=== PATIENT | male | born 1955 | race American Indian/Alaskan Native ===

== ENCOUNTER 2017-09-30 02:23 | Inpatient (IN) | payer OTHER ==
[2017-09-30] MEDS ORDERED: SUBLIMAZE IV ONE (02:37)
[2017-09-30] MEDS ORDERED: NACL 0.9% 1000 ML 1,000 ML IV ONE (02:37)
[2017-09-30] MEDS ORDERED: NACL 0.9% 500 ML 500 ML IV ONE (02:37)
--- NOTE | 2017-09-30 02:57 | Emergency Department Report ---
HPI - General Chief Complaint: Chest Pain Time Seen by Provider: 09/30/17 02:27 - HPI HPI: The patient is a 62-year-old male with a history of pulmonary embolism, htn, high cholesterol, obesity, and whom presents for evaluation of chest pain. The patient reports midsternal pressure-like chest pain that began approximately one hour prior to arrival, constant since onset, moderate in severity. The patient denies trauma to the chest, fever, cough, syncope, hemoptysis, unilateral leg swelling, recent immobilization. ED Past Medical Hx - Past Medical History Previous Medical History?: Yes Hx Hypertension: Yes Hx Diabetes: Yes - Surgical History Additional Surgical History: hernia repair - Social History Smoking Status: Never Smoker - Medications Home Medications: Home Medications Medication Instructions Recorded Confirmed Last Taken Type Empagliflozin [Jardiance] 25 mg PO DAILY 09/30/17 09/30/17 Unknown History Lisinopril [Zestril TAB] 40 mg PO QDAY 09/30/17 09/30/17 Unknown History NIFEdipine [Nifedipine] 90 mg PO DAILY 09/30/17 09/30/17 Unknown History Rivaroxaban [Xarelto] 20 mg PO QDAY 09/30/17 09/30/17 Unknown History metFORMIN [Glucophage] 500 mg PO BID 09/30/17 09/30/17 Unknown History ED Review of Systems ROS: Stated complaint: CODE STEMI Other details as noted in HPI Constitutional: denies: fever ENT: denies: throat or neck pain Respiratory: denies: cough, shortness of breath Cardiovascular: reports: chest pain Endocrine: denies unexplained weight loss or gain Gastrointestinal: denies: abdominal pain, nausea Genitourinary: denies: dysuria Musculoskeletal: denies: leg swelling Skin: denies: rash Neurological: denies: headache Hematological/Lymphatic: denies: easy bleeding or easy bruising Psych: denies sadness or hopelessness Physical Exam - Physical Exam Vital Signs: Vital Signs 09/30/17 02:28 Temperature 98.4 F Pulse Rate 74 Respiratory 20 Rate Blood Pressure 117/74 O2 Sat by Pulse 94 Oximetry Physical Exam: General: well-nourished, well-developed, no acute distress Head: Normocephalic, atraumatic Eyes: normal sclera ENT: Mucous membranes are pink and moist Neck: trachea midline, neck supple, No neck stiffness, no cervical adenopathy Respiratory: Breath sounds equal bilaterally, no wheezing, rales, or rhonchi Cardio: S1 and S2 present, no murmurs, rubs, gallops, capillary refill is brisk Abdomen: Normoactive bowel sounds, soft abdomen, no rigidity, no guarding or rebound tenderness Chest WALL/Back: No tenderness to palpation of the chest wall, no CVA tenderness with percussion Musc: No pitting edema Skin: No rash Neuro: no facial drooping, normal speech Psych: Normal affect ED Course Vital Signs 09/30/17 02:28 Temperature 98.4 F Pulse Rate 74 Respiratory 20 Rate Blood Pressure 117/74 O2 Sat by Pulse 94 Oximetry - Reevaluation(s) Reevaluation #1: 09/30/17 03:06 sanitation laborer arrived and has called for patient to be brought up to sanitation laborer. Patient being transferred emergently to the Knot Saw Operator. ED Medical Decision Making - Lab Data Result diagrams: 09/30/17 02:41 09/30/17 02:41 - Medical Decision Making The patient was seen and examined by myself immediately upon arrival. The patient is placed on a quality assurance monitor chassis and continuous pulse ox. On initial evaluation, the patient was found to be in no distress. Initial EKG exhibits ST elevation in leads 2, 3, and aVF, with slight ST depression in lead aVL. A code STEMI is promptly called and the on-call and emergency medical technician basic Dr. Lundberg is contacted. He agreed to accept the patient to the sanitation laborer and asked that the sanitation laborer be activated. The sanitation laborer was called in and evaluation orders were placed. The patient received 325 mg aspirin in route via EMS. The patient is given IV fentanyl here for his pain. The patient's transfer to the Knot Saw Operator. Lab results revealed normal initial troponin level. Critical care attestation.: If time is entered above; I have spent that time in minutes in the direct care of this critically ill patient, excluding procedure time. ED Disposition Clinical Impression: Acute chest pain STEMI (ST elevation myocardial infarction) Qualifiers: Involved coronary artery: right coronary artery Qualified Code(s): I21.11 - ST elevation (STEMI) myocardial infarction involving right coronary artery Disposition: OP ADMIT IP TO THIS HOSP Is pt being admited?: Yes Does the pt Need Aspirin: Yes Condition: Serious Instructions: Chest Pain (ED) Referrals: PRIMARY CARE,MD [Primary Care Provider] - 3-5 Days Time of Disposition: 02:40 Heart Score - HEART Score History: Highly suspicious EKG: Non-specific Age: 45-65 Risk factors: > 3 risk factors or hx of atherosclerotic disease Troponin: < normal limit HEART Score: 6 OLGA LIDIA score - Olga Lidia Score Age > 65: (0) No Aspirin use within the Past 7 Days: (1) Yes 3 or more CAD Risk Factors: (1) Yes 2 or more Angina events in past 24 hrs: (0) No Known CAD with more than 50% Stenosis: (0) No Elevated Cardiac Markers: (0) No ST Deviation Greater than 0.5mm: (1) Yes OLGA LIDIA Score: 3
[2017-09-30] MEDS ORDERED: BABY ASPIRIN PO ONE (03:01)
[2017-09-30 03:06] LABS: Partial Thromboplastin Time 21.9 Sec. (24.2-36.6)
[2017-09-30 03:11] LABS: Creatine Kinase MB 3.3 ng/mL (0.0-4.0)
[2017-09-30 03:12] LABS: BUN/Creatinine Ratio 19; Blood Urea Nitrogen 15 mg/dL (9-20); Calcium 8.8 mg/dL (8.4-10.2); Hemolysis Index 4
[2017-09-30] MEDS ORDERED: HEPARIN 10,000 UNITS/10 ML ONE ×2 (03:13→03:15)
[2017-09-30] MEDS ORDERED: HEPARIN/NS 5000 UNIT/500ML(CATH LAB) 1,500 ML IR ONE (03:13)
[2017-09-30] MEDS ORDERED: CALAN ONE (03:13)
[2017-09-30] MEDS ORDERED: XYLOCAINE 2% INFILTRATI ONE (03:13)
[2017-09-30 03:17] LABS: Hematocrit 45.6 % (35.5-45.6); Hemoglobin 14.5 gm/dl (11.8-15.2); Mean Corpuscular HGB Conc 32 % (32-34); Mean Corpuscular Hemoglobin 24 pg (28-32); Mean Corpuscular Volume 75 fl (84-94); Platelet Count 204 K/mm3 (140-440); Red Blood Count 6.09 M/mm3 (3.65-5.03)
[2017-09-30] MEDS ORDERED: VERSED ONE (03:26)
[2017-09-30] MEDS ORDERED: SUBLIMAZE ONE (03:26)
[2017-09-30] MEDS ORDERED: ATROPINE 0.1% (CARDIAC) ONE (03:27)
[2017-09-30] MEDS: NITROGLYCERIN SYRINGE 3 ML ONE ×2 (03:27→03:51)
[2017-09-30] MEDS: HEPARIN 10,000 UNITS/10 ML ONE ×4 (03:27→04:48)
[2017-09-30] MEDS ORDERED: HEPARIN/NS 5000 UNIT/500ML(CATH LAB) 1,000 ML IR ONE (03:39)
[2017-09-30] MEDS ORDERED: TRIDIL DRIP 50MG/250ML 50 MG/250 ML BOTTLE ONE (04:10)
[2017-09-30] MEDS ORDERED: AGGRASTAT DRIP (12.5 MG/250 ML) 12,500 MCG/250 ML BAG IV ONE (04:16)
[2017-09-30] MEDS ORDERED: PLAVIX ONE (04:31)
[2017-09-30] MEDS ORDERED: TRIDIL DRIP 50MG/250ML 50 MG/250 ML BOTTLE IV ONE (05:04)
[2017-09-30] MEDS ORDERED: ZOFRAN IV PRN (05:04)
[2017-09-30] MEDS ORDERED: D50W (25GM) Syringe IV PRN (05:09)
--- NOTE | 2017-09-30 05:16 | History and Physical Report ---
History of Present Illness Date of examination: 09/30/17 Chief complaint: Chest pain History of present illness: This is a 62-year-old woman gentleman with history of hypertension hyperlipidemia obesity diabetes protein S deficiency patient is on xalerto. Patient follows with [facility] [place] heart specialists had a negative stress test in April 2017. Patient was doing his normal activity and woke up with midsternal chest pressure mild nausea with radiation to her left arm pressure- like no syncope no palpitations. Called EMS patient was found to have an acute inferior wall [place] patient was emergently taken to the cardiac Information Assistant which revealed left main patent LAD patent diagonal one patent circumflex patent which are all large-caliber vessels with normal LV function and RCA was large aneurysmal vessel with distal vessel was 100% patient required thrombectomy and a temporary pacemaker wire initially that was removed as patient was monitored and did not require pacemaker for over an hour. Patient had a PCI of the PDA with a drug-eluting xience 2.5 x 15 mm and normal lv function, pt chest pain has improved since presentation. Past History Past Medical History: diabetes, hypertension, hyperlipidemia, other (protein S deficiency hypercoagulable state) Past Surgical History: No surgical history Social history: no significant social history Family history: no significant family history Medications and Allergies Allergies Allergy/AdvReac Type Severity Reaction Status Date / Time No Known Allergies Allergy Unverified 06/18/13 12:03 Home Medications Medication Instructions Recorded Confirmed Last Taken Type Empagliflozin [Jardiance] 25 mg PO DAILY 09/30/17 09/30/17 Unknown History Lisinopril [Zestril TAB] 40 mg PO QDAY 09/30/17 09/30/17 Unknown History NIFEdipine [Nifedipine] 90 mg PO DAILY 09/30/17 09/30/17 Unknown History Rivaroxaban [Xarelto] 20 mg PO QDAY 09/30/17 09/30/17 Unknown History metFORMIN [Glucophage] 500 mg PO BID 09/30/17 09/30/17 Unknown History Active Meds: Active Medications Aspirin (Baby Aspirin) 81 mg PO QDAY TREVOR Atorvastatin Calcium (Lipitor) 80 mg PO QHS TREVOR Clopidogrel Bisulfate (Plavix) 75 mg PO QDAY TREVOR Dextrose (D50w (25gm) Syringe) 50 ml IV PRN PRN PRN Reason: Hypoglycemia Sodium Chloride (Nacl 0.9% 1000 Ml) 1,000 mls @ 42 mls/hr IV ONCE ONE Stop: 10/01/17 02:25 Tirofiban/Sodium Chloride (Aggrastat Drip (12.5 Mg/250 Ml)) 12,500 mcg in 250 mls @ 0 mls/hr IV DIRECT TREVOR; Protocol Stop: 09/30/17 23:59 Nitroglycerin/Dextrose (Tridil Drip 50mg/250ml) 50 mg in 250 mls @ 6 mls/hr IV TITR ONE; Protocol Stop: 10/01/17 22:43 Sodium Chloride (Nacl 0.9% 1000 Ml) 1,000 mls @ 75 mls/hr IV DIRECT TREVOR Stop: 09/30/17 15:59 Insulin Human Regular (Humulin R) 0 units SUB-Q ACHS TREVOR; Protocol Morphine Sulfate (Morphine) 2 mg IV Q5MIN PRN PRN Reason: Chest Pain Ondansetron HCl (Zofran) 4 mg IV Q8H PRN PRN Reason: N/V unrelieved by Reglan Pantoprazole Sodium (Protonix) 40 mg PO QDAY TREVOR Rivaroxaban (Xarelto) 20 mg PO QDAY TREVOR; Protocol Tramadol HCl (Ultram) 50 mg PO Q4H PRN PRN Reason: Pain, Mild (1-3) Review of Systems All systems: negative (hpi) Physical Examination Vital Signs Temp Pulse Resp BP Pulse Ox 98.4 F 74 20 117/74 94 09/30/17 02:28 09/30/17 02:28 09/30/17 02:28 09/30/17 02:28 09/30/17 02:28 General appearance: no acute distress, well-nourished HEENT: Positive: PERRL, Mucus Membranes Moist Neck: Positive: neck supple, trachea midline Cardiac: Positive: Reg Rate and Rhythm, S1/S2. Negative: Audible Murmur Lungs: Positive: clear to auscultation, Normal Breath Sounds Neuro: Positive: Grossly Intact Abdomen: Positive: Soft, Active Bowel Sounds. Negative: Tender, Distended Male genitourinary: Positive: normal Skin: Positive: Clear Incision: Cardiac Cath Site (right arm no hematoma and right groin venous sheath in place no hematoma) Musculoskeletal: No Pain, Normal Range of Motion Extremities: Present: normal. Absent: edema Results 09/30/17 02:41 09/30/17 02:41 Cardiac Enzymes 09/30/17 Range/Units 02:41 CK-MB (CK-2) 3.3 (0.0-4.0) ng/mL Coagulation 09/30/17 Range/Units 02:41 PT 13.7 (12.2-14.9) Sec. INR 1.00 (0.87-1.13) APTT 21.9 L (24.2-36.6) Sec. CBC 09/30/17 Range/Units 02:41 WBC 8.2 (4.5-11.0) K/mm3 RBC 6.09 H (3.65-5.03) M/mm3 Hgb 14.5 (11.8-15.2) gm/dl Hct 45.6 (35.5-45.6) % Plt Count 204 (140-440) K/mm3 Lymph # Nurseryman Assistant Comprehensive Metabolic Panel 09/30/17 Range/Units 02:41 Sodium 139 (137-145) mmol/L Potassium 4.2 (3.6-5.0) mmol/L Chloride 100.6 (98-107) mmol/L Carbon Dioxide 25 (22-30) mmol/L BUN 15 (9-20) mg/dL Creatinine 0.8 (0.8-1.5) mg/dL Glucose 162 H (75-100) mg/dL Calcium 8.8 (8.4-10.2) mg/dL - Imaging and Cardiology Cardiac cath: report reviewed (09/30/2017 left main patent LAD patent diagonal one patent circumflex patent which are all large-caliber vessels with normal LV function and RCA was large aneurysmal vessel with distal vessel was 100% patient required thrombectomy and a temporary pacemaker wire initially that was removed as patient was monitored and did not require pacemaker for over an hour. Patient had a PCI of the PDA with a drug-eluting xience 2.5 x 15 mm and normal lv function) EKG interpretations - Telemetry EKG Rhythm: Sinus Rhythm (nsr st elevation inferior leads) Assessment and Plan Patient is post inferior wall WA and received a stent to the PDA drug-eluting 2.5 x 15 mm patient has a protein S deficiency and has hyper couagable state and has aneurysmal RCA vessels we'll suggest continuation of xarelto and aspirin and Plavix. Patient will receive Aggrastat for 18 hours patient is on IV nitroglycerin for chest pain as patient has small vessel distal and heavy clot burden which required thrombectomy during the PCI patient post PCI care will hold metformin post PCI patient will be on insulin sliding scale will hold beta blockers at this time in view of requiring temporary pacemaker reevaluate BP meds once patient is stabilized continue Lipitor high-dose discussed this in detail with the patient patient's family - Patient Problems (1) Acute diastolic (congestive) heart failure Current Visit: Yes Status: Acute (2) Acute respiratory failure Current Visit: Yes Status: Acute Qualifiers: Respiratory failure complication: hypoxia Qualified Code(s): J96.01 - Acute respiratory failure with hypoxia (3) Morbid obesity due to excess calories Current Visit: Yes Status: Chronic (4) Hypertension Current Visit: Yes Status: Chronic Qualifiers: Hypertension type: essential hypertension Qualified Code(s): I10 - Essential (primary) hypertension (5) Hyperlipemia, mixed Current Visit: Yes Status: Chronic (6) Diabetes mellitus Current Visit: Yes Status: Chronic Qualifiers: Diabetes mellitus type: type 2 Diabetes mellitus terminal make up operator insulin use: with terminal make up operator use Diabetes mellitus complication status: without complication Qualified Code(s): E11.9 - Type 2 diabetes mellitus without complications; Z79.4 - longterm (current) use of insulin (7) Protein S deficiency Current Visit: Yes Status: Chronic (8) STEMI (ST elevation myocardial infarction) Current Visit: Yes Status: Acute Qualifiers: Involved coronary artery: right coronary artery Qualified Code(s): I21.11 - ST elevation (STEMI) myocardial infarction involving right coronary artery
[2017-09-30] MEDS ORDERED: AGGRASTAT DRIP (12.5 MG/250 ML) 12,500 MCG/250 ML BAG IV SCH (06:00)
[2017-09-30] MEDS ORDERED: NACL 0.9% 1000 ML 1,000 ML IV SCH (06:00)
[2017-09-30 06:35] LABS: Band Neutrophils # (Manual) 0.2 K/mm3; Eosinophils % (Manual) 0 % (0.0-4.3); Total Cells Counted 100
[2017-09-30 06:36] LABS: Anisocytosis 1+; Hypochromasia 1+
[2017-09-30] MEDS: MORPHINE IV PRN ×5 (06:47→22:42)
[2017-09-30 07:41] LABS: Creatine Kinase MB 30.1 ng/mL (0.0-4.0)
[2017-09-30 08:11] LABS: Chol/HDL Ratio 4.97 %
[2017-09-30] MEDS: PROTONIX PO SCH (10:22)
[2017-09-30] MEDS: BABY ASPIRIN PO SCH (10:24)
[2017-09-30] MEDS: HumuLIN R SUB-Q SCH ×5 (10:26→22:06)
[2017-09-30 10:37] LABS: Creatine Kinase MB 51.3 ng/mL (0.0-4.0)
--- NOTE | 2017-09-30 10:41 | XRay Report ---
FINAL REPORT EXAM: XR CHEST 1V AP HISTORY: chest pain TECHNIQUE: Frontal chest x-ray. PRIORS: None currently available. FINDINGS: Hypoaerated lungs accentuate the pulmonary markings and cardiac silhouette. Cardiac silhouette is within normal limits. Prominent central pulmonary markings with airspace opacities. No pneumothorax. No large consolidation. No obvious effusion. There are no suspicious osseous lesions. IMPRESSION: Findings suggest pulmonary vascular congestion with pulmonary edema. Differential diagnosis would include pneumonia and acute pneumonitis.
[2017-09-30] MEDS: XARELTO PO SCH (11:21)
--- NOTE | 2017-09-30 11:31 | Event Note ---
Date: 09/30/17 Patient's right radial dressing has been removed no hematoma or bleeding right common femoral venous sheath has been removed hematoma no bleeding patient is chest pain is stable EKG shows improvement of ST elevations no reciprocal changes noted given patient's small vessel disease in his RCA distally to treat medically will continue nitroglycerin aspirin Plavix and xaerlto. Discussed this with the patient in detail
--- NOTE | 2017-09-30 11:31 | Consultation ---
History of Present Illness Consult date: 09/30/17 Requesting physician: RONALDO PATINO Reason for consult: other (NSTEMI, ICU care) History of present illness: Patient is a 62 y/o male who is well known with a history of hypertenison, hyperlipidemia, T2DM, obesity and Protein S deficiency and a strong family history of same, on life time anticoagulation with Xeralto, admitted on 09/30/17 for exertional chest pain doing his normal daily activityat home. Had mild retrosternal chest pressure with radiation to her left arm. Like an elephant standing on his chest. Denies any no syncope no palpitations. Called EMS patient was found to have an acute inferior wall [place] patient was emergently taken to the cardiac Press Cutter which revealed left main patent LAD patent diagonal one patent circumflex patent which are all large-caliber vessels with normal LV function and RCA was large aneurysmal vessel with distal vessel was 100% patient required thrombectomy and a temporary pacemaker wire initially that was removed as patient was monitored and did not require pacemaker for over an hour. Patient had a PCI of the PDA with a drug-eluting stent 2.5 x 15 mm and normal LV function, patient still has some residual chest pain. ECHO of 10/01/17 showed EF of 55-60 % with normal ventricular function. I have been consulted for critical care management, post PCI Patient was seen and examined. Vitals, labs, medications, chart reviewed. Past History Past Medical History: diabetes, hypertension, hyperlipidemia, other (protein S deficiency hypercoagulable state) Past Surgical History: No surgical history Social history: no significant social history Family history: no significant family history Medications and Allergies Allergies Allergy/AdvReac Type Severity Reaction Status Date / Time No Known Allergies Allergy Unverified 06/18/13 12:03 Home Medications Medication Instructions Recorded Confirmed Last Taken Type Empagliflozin [Jardiance] 25 mg PO DAILY 09/30/17 09/30/17 Unknown History Lisinopril [Zestril TAB] 40 mg PO QDAY 09/30/17 09/30/17 Unknown History NIFEdipine [Nifedipine] 90 mg PO DAILY 09/30/17 09/30/17 Unknown History Rivaroxaban [Xarelto] 20 mg PO QDAY 09/30/17 09/30/17 Unknown History metFORMIN [Glucophage] 500 mg PO BID 09/30/17 09/30/17 Unknown History Amoxicillin/K Clav Tab [Augmentin 1 tab PO Q12HR #11 tab 10/04/17 Unknown Rx 875 mg] Aspirin [Aspirin BABY CHEW TAB] 81 mg PO QDAY tab.chew 10/04/17 Unknown Rx AtorvaSTATin [Lipitor] 80 mg PO QHS #30 tablet 10/04/17 Unknown Rx Clopidogrel Bisulfate [Plavix] 75 mg PO DAILY #30 tablet 10/04/17 Unknown Rx Active Meds: Active Medications Aspirin (Baby Aspirin) 81 mg PO QDAY TREVOR Last Admin: 09/30/17 10:24 Dose: 81 mg Atorvastatin Calcium (Lipitor) 80 mg PO QHS TREVOR Clopidogrel Bisulfate (Plavix) 75 mg PO QDAY TREVOR Dextrose (D50w (25gm) Syringe) 50 ml IV PRN PRN PRN Reason: Hypoglycemia Sodium Chloride (Nacl 0.9% 1000 Ml) 1,000 mls @ 42 mls/hr IV ONCE ONE Stop: 10/01/17 02:25 Last Admin: 09/30/17 11:20 Dose: 42 mls/hr Tirofiban/Sodium Chloride (Aggrastat Drip (12.5 Mg/250 Ml)) 12,500 mcg in 250 mls @ 21 mls/hr IV DIRECT TREVOR; Protocol Stop: 09/30/17 23:59 Nitroglycerin/Dextrose (Tridil Drip 50mg/250ml) 50 mg in 250 mls @ 6 mls/hr IV TITR ONE; Protocol Stop: 10/01/17 22:43 Last Titration: 09/30/17 06:46 Dose: 50 mcg/min, 15 mls/hr Sodium Chloride (Nacl 0.9% 1000 Ml) 1,000 mls @ 75 mls/hr IV DIRECT TREVOR Stop: 09/30/17 15:59 Insulin Human Regular (Humulin R) 0 units SUB-Q ACHS TREVOR; Protocol Last Admin: 09/30/17 10:26 Dose: Not Given Morphine Sulfate (Morphine) 2 mg IV Q5MIN PRN PRN Reason: Chest Pain Last Admin: 09/30/17 10:25 Dose: 2 mg Ondansetron HCl (Zofran) 4 mg IV Q8H PRN PRN Reason: N/V unrelieved by Reglan Pantoprazole Sodium (Protonix) 40 mg PO QDAY TREVOR Last Admin: 09/30/17 10:22 Dose: 40 mg Rivaroxaban (Xarelto) 20 mg PO QDAY [facility] [place]; Protocol Last Admin: 09/30/17 11:21 Dose: 20 mg Tramadol HCl (Ultram) 50 mg PO Q4H PRN PRN Reason: Pain, Mild (1-3) Physical Examination Vital signs: Vital Signs Pulse Ox 92 09/30/17 02:24 Vitals reviewed. General appearance: no acute distress, well-nourished, obese HEENT: Positive: PERRL, Mucus Membranes Moist Neck: Positive: neck supple, trachea midline Cardiac: Positive: Reg Rate and Rhythm, S1/S2. Negative: Audible Murmur Lungs: Positive: clear to auscultation, Normal Breath Sounds Neuro: Positive: Grossly Intact Abdomen: Positive: Soft, Active Bowel Sounds. Negative: Tender, Distended Male genitourinary: Positive: normal Skin: Positive: Clear Incision: Cardiac Cath Site (right arm no hematoma and right groin venous sheath in place no hematoma) Musculoskeletal: No Pain, Normal Range of Motion Extremities: Present: normal. Absent: edema Results - Laboratory Findings CBC and BMP: 10/04/17 04:58 10/04/17 04:58 PT/INR, D-dimer PT 13.7 Sec. (12.2-14.9) 09/30/17 02:41 INR 1.00 (0.87-1.13) 09/30/17 02:41 Abnormal lab findings: Abnormal Labs 09/30/17 09/30/17 09/30/17 02:41 02:41 02:41 RBC 6.09 H MCV 75 L MCH 24 L RDW 16.0 H Seg Neuts % (Manual) 33.0 L Lymphocytes % (Manual) 51.0 H Monocytes % (Manual) 8.0 H APTT 21.9 L Glucose 162 H POC Glucose Total Creatine Kinase 272 H CK-MB (CK-2) CK-MB (CK-2) Rel Index Troponin T LDL Cholesterol Direct 09/30/17 09/30/17 09/30/17 06:24 08:26 09:41 RBC MCV MCH RDW Seg Neuts % (Manual) Lymphocytes % (Manual) Monocytes % (Manual) APTT Glucose POC Glucose 148 H Total Creatine Kinase 722 H 1010 H CK-MB (CK-2) 30.1 H 51.3 H CK-MB (CK-2) Rel Index 4.1 H 5.0 H Troponin T 0.737 H* D 0.874 H* LDL Cholesterol Direct 151 H - Diagnostic Findings Chest x-ray: image reviewed Assessment and Plan STEMI CAD s/p Stenting Acute CHF (HFpEF) Acute Hypoxemic Resp Failure HTN Hyperlipidemia Diabetes Mellitus Protein S deficiency Sinus Bradycardia Morbid Obesity -Cardio-protective measures -Continue with anticoagulation -Supplemental oxygen to keep O2 sats>88% -Weight loss and lifestyle modifications -Pain management -Anti-platelet therapy -Outpatient evaluation for sleep apnea -Accucheck with glycemic control, keep glucose <150mg/dL Discussed with cardiology Patient updated at the bedside. Counselling done
--- NOTE | 2017-09-30 12:51 | Cardiac Catherization Report ---
LEFT HEART CATH/TEMPORARY PACEMAKER/THROMBECTOMY REPORT WITH PCI DONE ON 09/30/2017 CLINICAL INFORMATION FOR PRESENTATION: This is a 62-year-old gentleman with obesity, hypertension, diabetes, cholesterol, protein S deficiency on lifelong Xarelto presents to the ED with chest pain, midsternal, and EKG shows ST elevation inferiorly with depression in the anterior leads. The patient was done on moderate sedation. The patient received 50 mcg of fentanyl and total sedation time was 80 minutes. Procedure was done via the right radial artery, sterile technique, local anesthesia, 6-Danish radial sheath inserted. The patient was becoming bradycardic and complete heart block, so a temporary pacemaker wire was placed via the right common femoral vein. Sterile technique, local anesthesia, 6-Danish venous sheath was placed and the pacemaker wire was placed into the right ventricle and achieved a heart rate of 60, output of 3 and sensory rate 3. Left heart catheterization was proceeded. FINDINGS: Left system engaged with JL3.5 catheter. Left main is large and patent. LAD is a large caliber vessel with mild ectasia. Diagonal 1 is a large caliber vessel that is patent. Circumflex is a large caliber vessel, patent, going into a large OM1 patent. Distal circumflex becomes a medium caliber vessel, patent. LV gram done in [place]ARL[place] and ANDERSON view shows normal LV function, LVEDP of 27 mmHg, LV is 122/27, aortic is 120/74. No gradient across the aortic valve on pullback. RCA engaged with a JR4 catheter, it is a large aneurysmal vessel with distal vessels 100%. There is a large RV branch that comes off that feeds almost like the PDA that is patent noted. PERCUTANEOUS INTERVENTION OF THE RCA: 1. Used a hockey stick guide to engage RCA. 2. With difficulty, I was able to, because of tortuosity of the vessel, use a Nogal wire and ballooned with a 3.0 x 12 balloon, but no gnosticism of flow. I tried to place a thrombectomy device, but would not go secondary to tortuosity. 3. I then placed a Runthrough wire and unable to give an Allstar down because of tortuosity. Runthrough wire down and ballooned small vessels distally. The wire would not go into what we felt was true branch. Balloon ballooned through the Runthrough wire and the Nogal wire and finally I was able to get some flow into its small caliber PDA vessel obtained through the PLV and then used an AngioJet device x 1 passes for 20 seconds and greatly improved flow to OLGA LIDIA 3 and showed a stenotic lesion in the PDA that was 95% lesion. 4. Then ballooned further the PLV with a Whisper wire after removal of Nogal and a 2.5 x 15 but flow did not improve after PLV branch felt to be too small. 5. The patient felt better when he had flow into that small PDA, so ballooned that with a 2.5 x 15 where there is a great caliber discrepancy between the distal RCA into that PDA. Thrombus was greatly removed after AngioJet thrombectomy device. 6. In view of improved flow, but stenotic lesion still present, I felt to stent the PDA with a drug-eluting Xience 2.5 x 15 at 12 atmospheres and reduced stenosis from 90% down to 0 in the PDA, but OLGA LIDIA 3 flow was still a chain the patient's chest pain was markedly improved. The patient did not require pacemaker support after 15-20 minutes into the case. So after observing for over an hour, we discontinued the pacemaker wire but left a 6-Danish groin sheath and multiple angiograms and through the hockey stick excellent angiographic result, but aneurysmal vessel and OLGA LIDIA 3 flow now into the distal RCA going to a small PDA with patent stent. 7. 6-Danish guiding catheter taken over a guidewire, 6-Danish radial sheath was discontinued. Radial dressing applied. No hematoma, no bleeding. SUMMARY: 1. Successful PCI of distal RCA with caliber mismatch into the PDA with drug-eluting Xience 2.5 x 15 to use a thrombectomy device AngioJet to remove heavy thrombus burden. The RCA itself is aneurysmal, large proximally and RV branch is large and is patent. 2. Left main patent, LAD patent, diagonal patent, circ patent, OM1 patent. 3. Normal LV function. 4. The patient will be on Aggrastat for 18 hours. He will be on triple therapy, Xarelto, aspirin and Plavix and post-radial care. Discussed this in detail with the patient and patient's family. JOB# [id number] ASH/VINICIUS ARIAS
[2017-09-30] MEDS: ULTRAM PO PRN (14:44)
[2017-10-01] MEDS ORDERED: ALUM-MAG HYDROX-SIMETH 200-200-20MG/5ML PO PRN (03:32)
--- NOTE | 2017-10-01 04:10 | XRay Report ---
FINAL REPORT EXAM: XR CHEST 1V AP HISTORY: post pci TECHNIQUE: A portable upright view the chest was obtained and compared to the study of 09/30/2017. FINDINGS: The heart is [id number] enlarged. The lungs appear less congested on the previous study. There are no localized infiltrates or effusions. There elevation the right hemidiaphragm. The skeletal structures reveal multilevel disc degeneration in the thoracic spine IMPRESSION: Cardiomegaly. Resolving congestion noted. No acute infiltrates or effusions.
[2017-10-01 06:02] LABS: Basophils % (Auto) 0.4 % (0.0-1.8); Eosinophils # (Auto) 0.1 K/mm3 (0.0-0.4); Eosinophils % (Auto) 0.6 % (0.0-4.3); Hematocrit 41.9 % (35.5-45.6); Hemoglobin 13.4 gm/dl (11.8-15.2); Lymphocytes # (Auto) 2.5 K/mm3 (1.2-5.4); Lymphocytes % (Auto) 26.2 % (13.4-35.0); Mean Corpuscular HGB Conc 32 % (32-34); Mean Corpuscular Volume 75 fl (84-94); Monocytes % (Auto) 10.9 % (0.0-7.3); Platelet Count 189 K/mm3 (140-440); Red Blood Count 5.57 M/mm3 (3.65-5.03); Red Cell Distribution Width 16.1 % (13.2-15.2)
[2017-10-01 06:14] LABS: Mean Corpuscular Hemoglobin 24 pg (28-32)
[2017-10-01 06:16] LABS: Creatine Kinase MB 88.7 ng/mL (0.0-4.0)
[2017-10-01 06:17] LABS: Alanine Aminotransferase 43 units/L (7-56); Albumin 3.6 g/dL (3.9-5); BUN/Creatinine Ratio 18; Blood Urea Nitrogen 14 mg/dL (9-20); Calcium 8.2 mg/dL (8.4-10.2); Hemolysis Index 3
[2017-10-01] MEDS: MORPHINE IV PRN ×2 (08:18→18:11)
--- NOTE | 2017-10-01 09:02 | Progress Note ---
Assessment and Plan Await echo. Consider addition of BB and/or Imdur if/when BP and HR permit. Currently stable cardiac status. Nitro gtt off. Will transfer pt out of CCU to telemetry. Assessment and plan reviewed with pt at bedside. The patient has been seen in conjunction with Dr. Elijah Nichole who agrees with the assessment and plan of care. - Patient Problems (1) STEMI (ST elevation myocardial infarction) Current Visit: Yes Status: Acute Qualifiers: Involved coronary artery: right coronary artery Qualified Code(s): I21.11 - ST elevation (STEMI) myocardial infarction involving right coronary artery (2) Stented coronary artery Current Visit: Yes Status: Chronic (3) Acute diastolic (congestive) heart failure Current Visit: Yes Status: Acute (4) Acute respiratory failure Current Visit: Yes Status: Acute Qualifiers: Respiratory failure complication: hypoxia Qualified Code(s): J96.01 - Acute respiratory failure with hypoxia (5) Hypertension Current Visit: Yes Status: Chronic Qualifiers: Hypertension type: essential hypertension Qualified Code(s): I10 - Essential (primary) hypertension (6) Hyperlipemia, mixed Current Visit: Yes Status: Chronic (7) Diabetes mellitus Current Visit: Yes Status: Chronic Qualifiers: Diabetes mellitus type: type 2 Diabetes mellitus manager intermediate insulin use: with chcf use Diabetes mellitus complication status: without complication Qualified Code(s): E11.9 - Type 2 diabetes mellitus without complications; Z79.4 - group home (current) use of insulin (8) Protein S deficiency Current Visit: Yes Status: Chronic (9) Sinus bradycardia Current Visit: Yes Status: Acute (10) Obesity Current Visit: Yes Status: Chronic Subjective Date of service: 10/01/17 Principal diagnosis: STEMI Interval history: pt resting comfortably in bed, no current complaints. had some intermittent chest pressure overnight. in SB on telemetry with BPs borderline low. nitro gtt off. Objective Last Vital Signs Temp 98.7 F 10/01/17 04:00 Pulse 41 L 10/01/17 06:30 Resp 17 10/01/17 06:30 BP 101/60 10/01/17 06:30 Pulse Ox 92 10/01/17 08:44 - Physical Examination General: No Apparent Distress HEENT: Positive: PERRL, Mucus Membranes Moist Neck: Positive: neck supple, trachea midline Cardiac: Positive: Regular Rhythm, S1/S2, Bradycardia Lungs: Positive: clear to auscultation Neuro: Positive: Grossly Intact Abdomen: Positive: Soft, Active Bowel Sounds. Negative: Tender, Distended Skin: Positive: Clear Incision: Cardiac Cath Site (right arm no hematoma and right groin venous sheath in place no hematoma) Musculoskeletal: No Pain, Normal Range of Motion Extremities: Present: normal. Absent: edema - Labs and Meds Cardiac Enzymes 09/30/17 10/01/17 Range/Units 09:41 04:51 AST 158 H (5-40) units/L CK-MB (CK-2) 51.3 H 88.7 H (0.0-4.0) ng/mL CBC 10/01/17 Range/Units 04:51 WBC 9.4 (4.5-11.0) K/mm3 RBC 5.57 H (3.65-5.03) M/mm3 Hgb 13.4 (11.8-15.2) gm/dl Hct 41.9 (35.5-45.6) % Plt Count 189 (140-440) K/mm3 Lymph # 2.5 (1.2-5.4) K/mm3 [place] # 1.0 H (0.0-0.8) K/mm3 Eos # 0.1 (0.0-0.4) K/mm3 Baso # 0.0 (0.0-0.1) K/mm3 Comprehensive Metabolic Panel 10/01/17 Range/Units 04:51 Sodium 139 (137-145) mmol/L Potassium 5.0 (3.6-5.0) mmol/L Chloride 101.5 (98-107) mmol/L Carbon Dioxide 22 (22-30) mmol/L BUN 14 (9-20) mg/dL Creatinine 0.8 (0.8-1.5) mg/dL Glucose 165 H (75-100) mg/dL Calcium 8.2 L (8.4-10.2) mg/dL AST 158 H (5-40) units/L ALT 43 (7-56) units/L Alkaline Phosphatase 75 (35-129) units/L Total Protein 6.8 (6.3-8.2) g/dL Albumin 3.6 L (3.9-5) g/dL - Imaging and Cardiology Echo: pending Cardiac cath: report reviewed (09/30/2017 left main patent LAD patent diagonal one patent circumflex patent which are all large-caliber vessels with normal LV function and RCA was large aneurysmal vessel with distal vessel was 100% patient required thrombectomy and a temporary pacemaker wire initially that was removed as patient was monitored and did not require pacemaker for over an hour. Patient had a PCI of the PDA with a drug-eluting xience 2.5 x 15 mm and normal lv function) - Telemetry EKG Rhythm: Sinus Bradycardia
[2017-10-01] MEDS: XARELTO PO SCH (10:48)
[2017-10-01] MEDS: PROTONIX PO SCH (10:48)
[2017-10-01] MEDS: BABY ASPIRIN PO SCH (10:48)
[2017-10-01] MEDS: PLAVIX PO SCH (10:48)
[2017-10-01] MEDS: HumuLIN R SUB-Q SCH ×4 (10:49→22:13)
--- NOTE | 2017-10-01 15:01 | Progress Note ---
Assessment and Plan STEMI CAD s/p Stenting Acute CHF (HFpEF) Acute Hypoxemic Resp Failure HTN Hyperlipidemia Diabetes Mellitus Protein S defficiency Sinus Bradycardia Obesity Subjective Date of service: 10/01/17 Principal diagnosis: STEMI Interval history: Patient is seen today for: STEMI Seen and examined at bedside; 24hour events reviewed; nursing and respiratory care staff consulted; no adverse overnight events reported to me; resting in bed ; Objective Vital Signs - 12hr 10/01/17 10/01/17 10/01/17 03:10 03:20 03:30 Temperature Pulse Rate 47 L 56 L 48 L Respiratory 17 19 17 Rate Blood Pressure 101/74 101/74 97/62 O2 Sat by Pulse 94 95 93 Oximetry 10/01/17 10/01/17 10/01/17 03:40 03:50 04:00 Temperature 98.7 F Pulse Rate 49 L 44 L 42 L Respiratory 16 18 16 Rate Blood Pressure 97/62 97/62 102/59 O2 Sat by Pulse 93 94 94 Oximetry 10/01/17 10/01/17 10/01/17 04:10 04:20 04:30 Temperature Pulse Rate 43 L 44 L 41 L Respiratory 17 17 18 Rate Blood Pressure 102/59 102/59 102/63 O2 Sat by Pulse 94 93 93 Oximetry 10/01/17 10/01/17 10/01/17 04:40 04:50 05:00 Temperature Pulse Rate 49 L 41 L 44 L Respiratory 18 18 18 Rate Blood Pressure 102/63 102/63 95/55 O2 Sat by Pulse 93 92 93 Oximetry 10/01/17 10/01/17 10/01/17 05:10 05:20 05:30 Temperature Pulse Rate 43 L 48 L 43 L Respiratory 20 20 18 Rate Blood Pressure 95/55 95/55 92/53 O2 Sat by Pulse 93 92 93 Oximetry 10/01/17 10/01/17 10/01/17 05:40 05:50 06:00 Temperature Pulse Rate 43 L 41 L 41 L Respiratory 17 16 16 Rate Blood Pressure 92/53 92/53 92/57 O2 Sat by Pulse 94 93 94 Oximetry 10/01/17 10/01/17 10/01/17 06:10 06:20 06:30 Temperature Pulse Rate 42 L 44 L 41 L Respiratory 17 19 17 Rate Blood Pressure 92/57 92/57 101/60 O2 Sat by Pulse 92 93 91 Oximetry 10/01/17 10/01/17 10/01/17 06:40 06:50 07:00 Temperature Pulse Rate 44 L 44 L 47 L Respiratory 17 20 17 Rate Blood Pressure 101/60 101/60 97/59 O2 Sat by Pulse 92 92 93 Oximetry 10/01/17 10/01/17 10/01/17 07:10 07:20 07:30 Temperature Pulse Rate 50 L 50 L 49 L Respiratory 17 19 20 Rate Blood Pressure 97/59 97/59 103/61 O2 Sat by Pulse 85 84 87 Oximetry 10/01/17 10/01/17 10/01/17 07:40 07:50 08:00 Temperature 99.8 F H Pulse Rate 45 L 46 L 48 L Respiratory 16 19 16 Rate Blood Pressure 103/61 103/61 88/50 O2 Sat by Pulse 93 91 91 Oximetry 10/01/17 10/01/17 10/01/17 08:10 08:20 08:30 Temperature Pulse Rate 50 L 51 L 48 L Respiratory 10 L 17 21 Rate Blood Pressure 103/61 103/61 114/69 O2 Sat by Pulse 91 93 93 Oximetry 10/01/17 10/01/17 10/01/17 08:40 08:44 08:50 Temperature Pulse Rate 71 53 L Respiratory 13 19 Rate Blood Pressure 88/50 88/50 O2 Sat by Pulse 90 92 93 Oximetry 10/01/17 10/01/17 10/01/17 09:00 09:10 09:20 Temperature Pulse Rate 45 L 50 L 51 L Respiratory 18 18 18 Rate Blood Pressure 119/71 114/69 114/69 O2 Sat by Pulse 93 92 92 Oximetry 10/01/17 10/01/17 10/01/17 09:30 09:40 09:50 Temperature Pulse Rate 55 L 44 L 52 L Respiratory 18 18 20 Rate Blood Pressure 112/66 112/66 112/66 O2 Sat by Pulse 92 92 90 Oximetry 10/01/17 10/01/17 10/01/17 10:00 10:10 10:20 Temperature Pulse Rate 52 L 50 L 48 L Respiratory 20 17 19 Rate Blood Pressure 122/77 122/77 122/77 O2 Sat by Pulse 93 91 91 Oximetry 10/01/17 10/01/17 10/01/17 10:30 10:40 10:50 Temperature Pulse Rate 45 L 48 L 52 L Respiratory 20 16 15 Rate Blood Pressure 114/74 114/74 114/74 O2 Sat by Pulse 91 91 90 Oximetry 10/01/17 10/01/17 10/01/17 11:00 11:10 11:20 Temperature Pulse Rate 53 L 58 L 42 L Respiratory 21 22 19 Rate Blood Pressure 120/79 114/74 114/74 O2 Sat by Pulse 89 91 93 Oximetry 10/01/17 10/01/17 10/01/17 11:30 11:40 11:50 Temperature Pulse Rate 42 L 76 52 L Respiratory 17 22 22 Rate Blood Pressure 106/61 106/61 106/61 O2 Sat by Pulse 92 89 90 Oximetry 10/01/17 10/01/17 10/01/17 12:00 12:10 12:20 Temperature 98.5 F Pulse Rate 52 L 47 L 51 L Respiratory 22 19 17 Rate Blood Pressure 115/67 115/67 115/67 O2 Sat by Pulse 92 92 93 Oximetry 10/01/17 10/01/17 12:30 12:40 Temperature Pulse Rate 47 L 55 L Respiratory 19 14 Rate Blood Pressure 120/72 120/72 O2 Sat by Pulse 93 91 Oximetry CBC and BMP: 10/01/17 04:51 10/01/17 04:51 ABG, PT/INR, D-dimer: PT/INR, D-dimer PT 13.7 Sec. (12.2-14.9) 09/30/17 02:41 INR 1.00 (0.87-1.13) 09/30/17 02:41 Abnormal lab findings: Abnormal Labs 09/30/17 09/30/17 09/30/17 02:41 02:41 02:41 RBC 6.09 H MCV 75 L MCH 24 L RDW 16.0 H [place] % (Auto) [place] # Seg Neuts % (Manual) 33.0 L Lymphocytes % (Manual) 51.0 H Monocytes % (Manual) 8.0 H APTT 21.9 L Glucose 162 H POC Glucose Calcium AST Total Creatine Kinase 272 H CK-MB (CK-2) CK-MB (CK-2) Rel Index Troponin T Albumin LDL Cholesterol Direct 09/30/17 09/30/17 09/30/17 06:24 08:26 09:41 RBC MCV MCH RDW [place] % (Auto) [place] # Seg Neuts % (Manual) Lymphocytes % (Manual) Monocytes % (Manual) APTT Glucose POC Glucose 148 H Calcium AST Total Creatine Kinase 722 H 1010 H CK-MB (CK-2) 30.1 H 51.3 H CK-MB (CK-2) Rel Index 4.1 H 5.0 H Troponin T 0.737 H* D 0.874 H* Albumin LDL Cholesterol Direct 151 H 09/30/17 09/30/17 09/30/17 11:51 16:27 21:35 RBC MCV MCH RDW [place] % (Auto) [place] # Seg Neuts % (Manual) Lymphocytes % (Manual) Monocytes % (Manual) APTT Glucose POC Glucose 151 H 157 H 142 H Calcium AST Total Creatine Kinase CK-MB (CK-2) CK-MB (CK-2) Rel Index Troponin T Albumin LDL Cholesterol Direct 10/01/17 10/01/17 10/01/17 04:51 04:51 09:39 RBC 5.57 H MCV 75 L MCH 24 L RDW 16.1 H [place] % (Auto) 10.9 H [place] # 1.0 H Seg Neuts % (Manual) Lymphocytes % (Manual) Monocytes % (Manual) APTT Glucose 165 H POC Glucose 167 H Calcium 8.2 L AST 158 H Total Creatine Kinase 1659 H CK-MB (CK-2) 88.7 H CK-MB (CK-2) Rel Index 5.3 H Troponin T 1.500 H* D Albumin 3.6 L LDL Cholesterol Direct 10/01/17 11:34 RBC MCV MCH RDW [place] % (Auto) [place] # Seg Neuts % (Manual) Lymphocytes % (Manual) Monocytes % (Manual) APTT Glucose POC Glucose 150 H Calcium AST Total Creatine Kinase CK-MB (CK-2) CK-MB (CK-2) Rel Index Troponin T Albumin LDL Cholesterol Direct
[2017-10-02 05:50] LABS: Hemoglobin 13.4 gm/dl (11.8-15.2)
[2017-10-02] MEDS: XARELTO PO SCH (09:50)
[2017-10-02] MEDS: PLAVIX PO SCH (09:50)
[2017-10-02] MEDS: BABY ASPIRIN PO SCH (09:50)
[2017-10-02] MEDS: PROTONIX PO SCH (09:50)
[2017-10-02] MEDS: HumuLIN R SUB-Q SCH ×3 (09:52→16:30)
[2017-10-02] MEDS ORDERED: NACL 0.9% 250ML 250 ML IV ONE ×2 (10:32→13:15)
--- NOTE | 2017-10-02 10:51 | Progress Note ---
Assessment and Plan Echo reviewed - EF 55-60%, mild MR. Pt with low grade fever and hypotension this AM. Give NS bolus 250mL x 1, obtain blood and urine cultures and consult hospitalists for further eval/ management. No BB and/or Imdur at this time in setting of hypotension. Assessment and plan reviewed with pt at bedside. The patient has been seen in conjunction with Dr. Elijah Nichole who agrees with the assessment and plan of care. - Patient Problems (1) STEMI (ST elevation myocardial infarction) Current Visit: Yes Status: Acute Qualifiers: Involved coronary artery: right coronary artery Qualified Code(s): I21.11 - ST elevation (STEMI) myocardial infarction involving right coronary artery (2) Stented coronary artery Current Visit: Yes Status: Chronic (3) Acute respiratory failure Current Visit: Yes Status: Resolved Qualifiers: Respiratory failure complication: hypoxia Qualified Code(s): J96.01 - Acute respiratory failure with hypoxia (4) Hypertension Current Visit: Yes Status: Chronic Qualifiers: Hypertension type: essential hypertension Qualified Code(s): I10 - Essential (primary) hypertension (5) Hyperlipemia, mixed Current Visit: Yes Status: Chronic (6) Diabetes mellitus Current Visit: Yes Status: Chronic Qualifiers: Diabetes mellitus type: type 2 Diabetes mellitus superintendent container terminal insulin use: with superintendent container terminal use Diabetes mellitus complication status: without complication Qualified Code(s): E11.9 - Type 2 diabetes mellitus without complications; Z79.4 - halfway (current) use of insulin (7) Protein S deficiency Current Visit: Yes Status: Chronic (8) Sinus bradycardia Current Visit: Yes Status: Acute (9) Obesity Current Visit: Yes Status: Chronic (10) Fever Current Visit: Yes Status: Acute Subjective Date of service: 10/02/17 Principal diagnosis: STEMI Interval history: pt resting comfortably in bed, no current cardiac complaints. noted to be hypotensive this AM and with low grade fever. Objective Last Vital Signs Temp 100.0 F H 10/02/17 08:02 Pulse 55 L 10/02/17 09:07 Resp 20 10/02/17 09:07 BP 83/51 10/02/17 08:02 Pulse Ox 95 10/02/17 09:26 - Physical Examination General: No Apparent Distress HEENT: Positive: PERRL, Mucus Membranes Moist Neck: Positive: neck supple, trachea midline Cardiac: Positive: Regular Rhythm, S1/S2 Lungs: Positive: clear to auscultation Neuro: Positive: Grossly Intact Abdomen: Positive: Soft, Active Bowel Sounds. Negative: Tender, Distended Skin: Positive: Clear Incision: Cardiac Cath Site (right arm no hematoma and right groin venous sheath in place no hematoma) Musculoskeletal: No Pain, Normal Range of Motion Extremities: Present: normal. Absent: edema - Labs and Meds CBC 10/02/17 Range/Units 04:28 Hgb 13.4 (11.8-15.2) gm/dl Hct 42.0 (35.5-45.6) % Plt Count 169 (140-440) K/mm3 - Imaging and Cardiology Echo: report reviewed (10/01/2017: EF 55-60%, mild MR) Cardiac cath: report reviewed (09/30/2017 left main patent LAD patent diagonal one patent circumflex patent which are all large-caliber vessels with normal LV function and RCA was large aneurysmal vessel with distal vessel was 100% patient required thrombectomy and a temporary pacemaker wire initially that was removed as patient was monitored and did not require pacemaker for over an hour. Patient had a PCI of the PDA with a drug-eluting xience 2.5 x 15 mm and normal lv function) - Telemetry EKG Rhythm: Sinus Rhythm
[2017-10-02 11:55] LABS: Mean Corpuscular HGB Conc 31 % (32-34); Mean Corpuscular Volume 77 fl (84-94); Red Blood Count 5.98 M/mm3 (3.65-5.03); Red Cell Distribution Width 16.1 % (13.2-15.2)
[2017-10-02 12:03] LABS: Hematocrit 46.1 % (35.5-45.6); Hemoglobin 14.3 gm/dl (11.8-15.2); Mean Corpuscular Hemoglobin 24 pg (28-32)
[2017-10-02 12:37] LABS: Platelet Count 161 K/mm3 (140-440)
--- NOTE | 2017-10-02 13:27 | Consultation ---
History of Present Illness - Reason for Consult Consult date: 10/02/17 Possible sepsis Requesting physician: OFELIA LOVE - History of Present Illness Patient is a 62 y/o male who is well known with a history of hypertenison, hyperlipidemia, T2DM, obesity and Protein S deficiency and a strong family history of same, on life time anticoagulation with Xeralto, admitted on 09/30/17 for exertional chest pain doing his normal daily activityat home. Had mild retrosternal chest pressure with radiation to her left arm. Like an elephant standing on his chest. Denies any no syncope no palpitations. Called EMS patient was found to have an acute inferior wall IA patient was emergently taken to the cardiac Physical Therapy Resident which revealed left main patent LAD patent diagonal one patent circumflex patent which are all large-caliber vessels with normal LV function and RCA was large aneurysmal vessel with distal vessel was 100% patient required thrombectomy and a temporary pacemaker wire initially that was removed as patient was monitored and did not require pacemaker for over an hour. Patient had a PCI of the PDA with a drug-eluting xience 2.5 x 15 mm and normal lv function, pt chest pain has improved since presentation. ECHO of 10/01/17 showed EF of 55-60 % with normal ventricular function. CXR of shoed cardiomegaly with resolving congestion. No infiltrate. Pt strted having low grade fever for ci consult was obtaiend. He denies any cougg, dysuria, nause or vomiting Past History Past Medical History: diabetes, hypertension, hyperlipidemia, other (protein S deficiency hypercoagulable state) Past Surgical History: No surgical history Social history: no significant social history Family history: no significant family history Medications and Allergies Allergies Allergy/AdvReac Type Severity Reaction Status Date / Time No Known Allergies Allergy Unverified 06/18/13 12:03 Home Medications Medication Instructions Recorded Confirmed Last Taken Type Empagliflozin [Jardiance] 25 mg PO DAILY 09/30/17 09/30/17 Unknown History Lisinopril [Zestril TAB] 40 mg PO QDAY 09/30/17 09/30/17 Unknown History NIFEdipine [Nifedipine] 90 mg PO DAILY 09/30/17 09/30/17 Unknown History Rivaroxaban [Xarelto] 20 mg PO QDAY 09/30/17 09/30/17 Unknown History metFORMIN [Glucophage] 500 mg PO BID 09/30/17 09/30/17 Unknown History Active Meds: Active Medications Al Hydrox/Mg Hydrox/Simethicone (Alum-Mag Hydrox-Simeth [id number]/5ml) 30 ml PO Q4H PRN PRN Reason: Indigestion Last Admin: 10/01/17 08:18 Dose: 30 ml Aspirin (Baby Aspirin) 81 mg PO QDAY [facility] Last Admin: 10/02/17 09:50 Dose: 81 mg Atorvastatin Calcium (Lipitor) 80 mg PO QHS [facility] Last Admin: 10/01/17 22:13 Dose: 80 mg Clopidogrel Bisulfate (Plavix) 75 mg PO QDAY [facility] Last Admin: 10/02/17 09:50 Dose: 75 mg Dextrose (D50w (25gm) Syringe) 50 ml IV PRN PRN PRN Reason: Hypoglycemia Sodium Chloride (Nacl 0.9% 250ml) 250 mls @ 999 mls/hr IV ONCE ONE Stop: 10/02/17 13:30 Insulin Human Regular (Humulin R) 0 units SUB-Q ACHS [facility]; Protocol Last Admin: 10/02/17 12:46 Dose: Not Given Morphine Sulfate (Morphine) 2 mg IV Q5MIN PRN PRN Reason: Chest Pain Last Admin: 10/01/17 18:11 Dose: 2 mg Ondansetron HCl (Zofran) 4 mg IV Q8H PRN PRN Reason: N/V unrelieved by Shabnam Last Admin: 09/30/17 18:12 Dose: 4 mg Pantoprazole Sodium (Protonix) 40 mg PO QDAY [facility] Last Admin: 10/02/17 09:50 Dose: 40 mg Rivaroxaban (Xarelto) 20 mg PO QDAY [facility]; Protocol Last Admin: 10/02/17 09:50 Dose: 20 mg Tramadol HCl (Ultram) 50 mg PO Q4H PRN PRN Reason: Pain, Mild (1-3) Last Admin: 09/30/17 14:44 Dose: 50 mg Review of Systems Constitutional: no fever, no chills, no sweats, no anorexia Ears, nose, mouth and throat: no ear pain, no ear discharge, no tinnitis Cardiovascular: no chest pain, no orthopnea, no palpitations, no rapid/ irregular heart beat, no edema Respiratory: no cough, no cough with sputum, no excessive sputum, no hemoptysis Gastrointestinal: no nausea, no vomiting, no diarrhea, no constipation Genitourinary Male: no dysuria, no hematuria, no flank pain, no discharge Musculoskeletal: no neck pain, no shooting arm pain, no arm numbness/tingling, no low back pain Integumentary: no deferred, no pruritis, no redness, no sores Neurological: no transient paralysis, no paralysis, no weakness Psychiatric: no memory loss, no change in sleep habits, no sleep disturbances, no insomnia Endocrine: no cold intolerance, no heat intolerance, no polyphagia, no excessive thirst, no polydipsia Hematologic/Lymphatic: no easy bruising, no easy bleeding Allergic/Immunologic: no urticaria Exam - Constitutional Vitals: Temp Pulse Resp BP Pulse Ox 100.0 F H 55 L 20 83/51 95 10/02/17 08:02 10/02/17 09:07 10/02/17 09:07 10/02/17 08:02 10/02/17 09:26 General appearance: Present: no acute distress, well-nourished - EENT Eyes: Present: PERRL - Neck Neck: Present: supple, normal ROM - Respiratory Respiratory effort: normal Respiratory: bilateral: CTA - Cardiovascular Heart Sounds: Present: S1 & S2. Absent: rub, click - Extremities Extremities: pulses symmetrical, No edema Peripheral Pulses: within normal limits - Abdominal General gastrointestinal: Present: soft, non-tender, non-distended, normal bowel sounds - Integumentary Integumentary: Present: clear, warm, dry - Musculoskeletal Musculoskeletal: gait normal, strength equal bilaterally - Psychiatric Psychiatric: appropriate mood/affect, intact judgment & insight - Neurologic Neurologic: CNII-XII intact, moves all extremities Results - Labs CBC & Chem 7: 10/03/17 05:06 10/01/17 04:51 Labs: Abnormal lab results 10/01/17 10/01/17 10/02/17 Range/Units 15:07 21:44 08:59 WBC (4.5-11.0) K/mm3 RBC (3.65-5.03) M/mm3 Hct (35.5-45.6) % MCV (84-94) fl MCH (28-32) pg MCHC (32-34) % RDW (13.2-15.2) % POC Glucose 149 H 154 H 189 H (70-105) // Range/Units 11:28 WBC 11.3 H (4.5-11.0) K/mm3 RBC 5.98 H (3.65-5.03) M/mm3 Hct 46.1 H (35.5-45.6) % MCV 77 L (84-94) fl MCH 24 L (28-32) pg MCHC 31 L (32-34) % RDW 16.1 H (13.2-15.2) % POC Glucose (70-105) Assessment and Plan - Possible sepsis ? source Obtian lactic acid level F/u result of blood and urine Cx Commence pt on Vanc and Zosyn - Mild Leukocytosis could be infective or reactionary Trend - T2DM A1c SSI, consistent CHO diet - Hypercoagulable state with Prot S def. continu with anticoagulation with Xeralto - Hyperlipedemia on Statin - Thank you for this consult. Will continue to follow up this pt with you.
[2017-10-02] MEDS ORDERED: D50W (25GM) Syringe IV PRN (13:44)
[2017-10-02] MEDS ORDERED: VANCOMYCIN PHARMACY TO DOSE IV SCH (14:00)
[2017-10-02] MEDS ORDERED: VANCOMYCIN/NS 1 GM/250 ML 1 GM/250 ML BAG IV SCH (14:00)
[2017-10-02] MEDS: VANCOMYCIN 2,000 MG in NACL 0.9% 500 ML 500 ML IV SCH (16:35)
--- NOTE | 2017-10-02 18:33 | Progress Note ---
Assessment and Plan STEMI CAD s/p Stenting Acute CHF (HFpEF) Acute Hypoxemic Resp Failure HTN Hyperlipidemia Diabetes Mellitus Protein S deficiency Sinus Bradycardia Obesity Low grade fevers -Cultures, monitor fever curve and trend. Monitor off antibiotics for now - Continue cardio-protective measures -Continue with anticoagulation -Supplemental oxygen to keep O2 sats>88% -Weight loss and lifestyle modifications -Pain management -Anti-platelet therapy -Outpatient evaluation for sleep apnea -Accucheck with glycemic control, keep glucose <150mg/dL Patient updated at the bedside. Subjective Date of service: 10/02/17 Principal diagnosis: STEMI Interval history: Seen and examined. 24 hour events reviewed, discussed with RN Vitals, labs, medications, chart reviewed. Low grade fevers but no identifiable clinical source Objective - Exam Narrative Exam: General appearance: no acute distress, well-nourished HEENT: Positive: PERRL, Mucus Membranes Moist Neck: Positive: neck supple, trachea midline Cardiac: Positive: Reg Rate and Rhythm, S1/S2. Negative: Audible Murmur Lungs: Positive: clear to auscultation, Normal Breath Sounds Neuro: Positive: Grossly Intact Abdomen: Positive: Soft, Active Bowel Sounds. Negative: Tender, Distended Male genitourinary: Positive: normal Skin: Positive: Clear Musculoskeletal: No Pain, Normal Range of Motion Extremities: Present: normal. Absent: edema Vital Signs - 12hr 10/02/17 10/02/17 10/02/17 08:02 09:07 09:26 Temperature 100.0 F H Pulse Rate 54 L Pulse Rate [ 55 L From Monitor] Respiratory 20 20 Rate Blood Pressure 83/51 O2 Sat by Pulse 92 95 95 Oximetry 10/02/17 10/02/17 10/02/17 10:00 13:37 16:49 Temperature 99.7 F H 100.6 F H Pulse Rate 50 L 59 L 60 Pulse Rate [ From Monitor] Respiratory 20 20 Rate Blood Pressure 128/71 130/73 O2 Sat by Pulse 90 95 Oximetry CBC and BMP: 10/04/17 04:58 10/04/17 04:58 ABG, PT/INR, D-dimer: PT/INR, D-dimer PT 13.7 Sec. (12.2-14.9) 09/30/17 02:41 INR 1.00 (0.87-1.13) 09/30/17 02:41 Abnormal lab findings: Abnormal Labs 09/30/17 09/30/17 09/30/17 02:41 02:41 02:41 WBC RBC 6.09 H Hct MCV 75 L MCH 24 L MCHC RDW 16.0 H Love % (Auto) Love # Seg Neuts % (Manual) 33.0 L Lymphocytes % (Manual) 51.0 H Monocytes % (Manual) 8.0 H APTT 21.9 L Glucose 162 H POC Glucose Hemoglobin A1c Calcium AST Total Creatine Kinase 272 H CK-MB (CK-2) CK-MB (CK-2) Rel Index Troponin T Albumin LDL Cholesterol Direct 09/30/17 09/30/17 09/30/17 06:24 08:26 09:41 WBC RBC Hct MCV MCH MCHC RDW Love % (Auto) Love # Seg Neuts % (Manual) Lymphocytes % (Manual) Monocytes % (Manual) APTT Glucose POC Glucose 148 H Hemoglobin A1c Calcium AST Total Creatine Kinase 722 H 1010 H CK-MB (CK-2) 30.1 H 51.3 H CK-MB (CK-2) Rel Index 4.1 H 5.0 H Troponin T 0.737 H* D 0.874 H* Albumin LDL Cholesterol Direct 151 H 09/30/17 09/30/17 09/30/17 11:51 16:27 21:35 WBC RBC Hct MCV MCH MCHC RDW Love % (Auto) Love # Seg Neuts % (Manual) Lymphocytes % (Manual) Monocytes % (Manual) APTT Glucose POC Glucose 151 H 157 H 142 H Hemoglobin A1c Calcium AST Total Creatine Kinase CK-MB (CK-2) CK-MB (CK-2) Rel Index Troponin T Albumin LDL Cholesterol Direct 10/01/17 10/01/17 10/01/17 04:51 04:51 09:39 WBC RBC 5.57 H Hct MCV 75 L MCH 24 L MCHC RDW 16.1 H Love % (Auto) 10.9 H Love # 1.0 H Seg Neuts % (Manual) Lymphocytes % (Manual) Monocytes % (Manual) APTT Glucose 165 H POC Glucose 167 H Hemoglobin A1c Calcium 8.2 L AST 158 H Total Creatine Kinase 1659 H CK-MB (CK-2) 88.7 H CK-MB (CK-2) Rel Index 5.3 H Troponin T 1.500 H* D Albumin 3.6 L LDL Cholesterol Direct 10/01/17 10/01/17 10/01/17 11:34 15:07 21:44 WBC RBC Hct MCV MCH MCHC RDW Love % (Auto) Love # Seg Neuts % (Manual) Lymphocytes % (Manual) Monocytes % (Manual) APTT Glucose POC Glucose 150 H 149 H 154 H Hemoglobin A1c Calcium AST Total Creatine Kinase CK-MB (CK-2) CK-MB (CK-2) Rel Index Troponin T Albumin LDL Cholesterol Direct 10/02/17 10/02/17 10/02/17 08:59 11:28 13:51 WBC 11.3 H RBC 5.98 H Hct 46.1 H MCV 77 L MCH 24 L MCHC 31 L RDW 16.1 H Love % (Auto) Love # Seg Neuts % (Manual) Lymphocytes % (Manual) Monocytes % (Manual) APTT Glucose POC Glucose 189 H Hemoglobin A1c 7.5 H Calcium AST Total Creatine Kinase CK-MB (CK-2) CK-MB (CK-2) Rel Index Troponin T Albumin LDL Cholesterol Direct 10/02/17 17:01 WBC RBC Hct MCV MCH MCHC RDW Love % (Auto) Love # Seg Neuts % (Manual) Lymphocytes % (Manual) Monocytes % (Manual) APTT Glucose POC Glucose 115 H Hemoglobin A1c Calcium AST Total Creatine Kinase CK-MB (CK-2) CK-MB (CK-2) Rel Index Troponin T Albumin LDL Cholesterol Direct
[2017-10-02 19:47] LABS: Bilirubin,Urine NEG (Negative); Blood,Urine MOD (Negative); Color,Urine Yellow (Yellow)
[2017-10-03] MEDS: HumuLIN R SUB-Q SCH ×4 (00:01→17:05)
[2017-10-03] MEDS: ULTRAM PO PRN (00:06)
[2017-10-03] MEDS: VANCOMYCIN 2,000 MG in NACL 0.9% 500 ML 500 ML IV SCH ×2 (04:50→17:05)
[2017-10-03 07:39] LABS: Basophils % (Auto) 0.4 % (0.0-1.8); Eosinophils # (Auto) 0.1 K/mm3 (0.0-0.4); Hematocrit 41.1 % (35.5-45.6); Hemoglobin 13.1 gm/dl (11.8-15.2); Lymphocytes # (Auto) 3.1 K/mm3 (1.2-5.4); Lymphocytes % (Auto) 32.7 % (13.4-35.0); Mean Corpuscular HGB Conc 32 % (32-34); Mean Corpuscular Volume 75 fl (84-94); Monocytes # (Auto) 1.3 K/mm3 (0.0-0.8); Monocytes % (Auto) 13.5 % (0.0-7.3); Platelet Count 159 K/mm3 (140-440); Red Blood Count 5.45 M/mm3 (3.65-5.03); Red Cell Distribution Width 15.5 % (13.2-15.2)
[2017-10-03 07:40] LABS: Mean Corpuscular Hemoglobin 24 pg (28-32)
--- NOTE | 2017-10-03 07:48 | Progress Note ---
Assessment and Plan - Possible sepsis ? source check lactic acid level F/u result of blood and urine Cx Commence pt on Vanc and Zosyn - Mild Leukocytosis - improved could be infective or reactionary Trend - T2DM A1c SSI, consistent CHO diet - Hypercoagulable state with Prot S def. continue with anticoagulation with Xeralto - Hyperlipedemia on Statin Subjective Date of service: 10/03/17 Principal diagnosis: STEMI Interval history: Patient seen and examined. Temperature 1.2. Denies any abdominal pain nausea vomiting. No chest panic. Shortness of breath. Laboratory data reviewed. Objective - Exam Narrative Exam: Constitutional: Well-nourished well-developed. Obese. In no distress Head: Normocephalic atraumatic Eyes: Pupils are equal round and reactive to light Nose: No enlarged turbinates, no septal deviation. Mouth: Moist mucous membranes. Neck: Supple no thyromegaly. No bruit. No JVD Heart: Regular rate and rhythm, S1-S2 abnormal. No rubs murmurs or gallop Lungs: Clear to auscultation bilaterally no rales or rhonchi Abdomen: Soft, nontender. Bowel sound are present. Extremities: No edema no cyanosis and no clubbing. Neuro: Alert oriented Oriented x3. No focal sensory or motor deficit. Skin: No rashes no hyperemic spots Psychiatry: Euthymic. Calm. - Constitutional Vitals: Vital Signs - 12hr 10/02/17 10/02/17 10/02/17 19:52 20:30 20:35 Temperature 99.3 F Pulse Rate 68 Pulse Rate [ 58 L From Monitor] Respiratory 20 Rate Blood Pressure 133/83 O2 Sat by Pulse 93 93 Oximetry 10/02/17 10/03/17 10/03/17 22:00 00:44 06:53 Temperature 101.2 F H 98.5 F Pulse Rate 68 62 59 L Pulse Rate [ From Monitor] Respiratory 20 20 Rate Blood Pressure 110/58 106/61 O2 Sat by Pulse 90 91 Oximetry - Labs CBC & Chem 7: 10/03/17 05:06 10/01/17 04:51 Labs: Abnormal lab results 10/02/17 10/02/17 10/02/17 Range/Units 08:59 11:28 13:51 WBC 11.3 H (4.5-11.0) K/mm3 RBC 5.98 H (3.65-5.03) M/mm3 Hct 46.1 H (35.5-45.6) % MCV 77 L (84-94) fl MCH 24 L (28-32) pg MCHC 31 L (32-34) % RDW 16.1 H (13.2-15.2) % Ashley % (Auto) (0.0-7.3) % Ashley # (0.0-0.8) K/mm3 POC Glucose 189 H (70-105) Hemoglobin A1c 7.5 H (4-6) % Lactic Acid (0.7-2.0) mmol/L Urine WBC (Auto) (0.0-6.0) /HPF 10/02/17 10/02/17 10/02/17 Range/Units 17:01 18:50 23:21 WBC (4.5-11.0) K/mm3 RBC (3.65-5.03) M/mm3 Hct (35.5-45.6) % MCV (84-94) fl MCH (28-32) pg MCHC (32-34) % RDW (13.2-15.2) % Ashley % (Auto) (0.0-7.3) % Ashley # (0.0-0.8) K/mm3 POC Glucose 115 H 114 H (70-105) Hemoglobin A1c (4-6) % Lactic Acid 2.10 H* (0.7-2.0) mmol/L Urine WBC (Auto) (0.0-6.0) /HPF 10/02/17 10/03/17 10/03/17 Range/Units Unknown 05:06 07:14 WBC (4.5-11.0) K/mm3 RBC 5.45 H (3.65-5.03) M/mm3 Hct (35.5-45.6) % MCV 75 L (84-94) fl MCH 24 L (28-32) pg MCHC (32-34) % RDW 15.5 H (13.2-15.2) % Ashley % (Auto) 13.5 H (0.0-7.3) % Ashley # 1.3 H (0.0-0.8) K/mm3 POC Glucose 112 H (70-105) Hemoglobin A1c (4-6) % Lactic Acid (0.7-2.0) mmol/L Urine WBC (Auto) 17.0 H (0.0-6.0) /HPF
[2017-10-03 07:56] LABS: Alanine Aminotransferase 27 units/L (7-56); Albumin 3.1 g/dL (3.9-5); BUN/Creatinine Ratio 16; Blood Urea Nitrogen 13 mg/dL (9-20); Calcium 8.2 mg/dL (8.4-10.2); Hemolysis Index 2
[2017-10-03] MEDS: ZOSYN/NS 4.5GM/100ML 4.5 GM/100 ML VIAL IV SCH ×3 (09:13→21:57)
[2017-10-03] MEDS: PLAVIX PO SCH (09:14)
[2017-10-03] MEDS: BABY ASPIRIN PO SCH (09:14)
[2017-10-03] MEDS: XARELTO PO SCH (09:14)
[2017-10-03] MEDS: PROTONIX PO SCH (09:14)
--- NOTE | 2017-10-03 10:11 | Progress Note ---
Assessment and Plan STEMI CAD s/p Stenting Acute CHF (HFpEF) Acute Hypoxemic Resp Failure HTN Hyperlipidemia Diabetes Mellitus Protein S defficiency Sinus Bradycardia Obesity Subjective Date of service: 10/03/17 Principal diagnosis: STEMI Interval history: Patient is seen today for: STEMI Seen and examined at bedside; 24hour events reviewed; nursing and respiratory care staff consulted; no adverse overnight events reported to me; resting in bed ; Objective Vital Signs - 12hr 10/03/17 10/03/17 10/03/17 00:44 06:53 08:58 Temperature 101.2 F H 98.5 F Pulse Rate 62 59 L Pulse Rate [ 73 From Monitor] Respiratory 20 20 20 Rate Blood Pressure 110/58 106/61 O2 Sat by Pulse 90 91 91 Oximetry CBC and BMP: 10/03/17 05:06 10/03/17 05:06 ABG, PT/INR, D-dimer: PT/INR, D-dimer PT 13.7 Sec. (12.2-14.9) 09/30/17 02:41 INR 1.00 (0.87-1.13) 09/30/17 02:41 Abnormal lab findings: Abnormal Labs 09/30/17 09/30/17 09/30/17 02:41 02:41 02:41 WBC RBC 6.09 H Hct MCV 75 L MCH 24 L MCHC RDW 16.0 H Sawyer % (Auto) Sawyer # Seg Neuts % (Manual) 33.0 L Lymphocytes % (Manual) 51.0 H Monocytes % (Manual) 8.0 H APTT 21.9 L Glucose 162 H POC Glucose Hemoglobin A1c Lactic Acid Calcium AST Total Creatine Kinase 272 H CK-MB (CK-2) CK-MB (CK-2) Rel Index Troponin T Albumin LDL Cholesterol Direct Urine WBC (Auto) 09/30/17 09/30/17 09/30/17 06:24 08:26 09:41 WBC RBC Hct MCV MCH MCHC RDW Sawyer % (Auto) Sawyer # Seg Neuts % (Manual) Lymphocytes % (Manual) Monocytes % (Manual) APTT Glucose POC Glucose 148 H Hemoglobin A1c Lactic Acid Calcium AST Total Creatine Kinase 722 H 1010 H CK-MB (CK-2) 30.1 H 51.3 H CK-MB (CK-2) Rel Index 4.1 H 5.0 H Troponin T 0.737 H* D 0.874 H* Albumin LDL Cholesterol Direct 151 H Urine WBC (Auto) 09/30/17 09/30/17 09/30/17 11:51 16:27 21:35 WBC RBC Hct MCV MCH MCHC RDW Sawyer % (Auto) Sawyer # Seg Neuts % (Manual) Lymphocytes % (Manual) Monocytes % (Manual) APTT Glucose POC Glucose 151 H 157 H 142 H Hemoglobin A1c Lactic Acid Calcium AST Total Creatine Kinase CK-MB (CK-2) CK-MB (CK-2) Rel Index Troponin T Albumin LDL Cholesterol Direct Urine WBC (Auto) 10/01/17 10/01/17 10/01/17 04:51 04:51 09:39 WBC RBC 5.57 H Hct MCV 75 L MCH 24 L MCHC RDW 16.1 H Sawyer % (Auto) 10.9 H Sawyer # 1.0 H Seg Neuts % (Manual) Lymphocytes % (Manual) Monocytes % (Manual) APTT Glucose 165 H POC Glucose 167 H Hemoglobin A1c Lactic Acid Calcium 8.2 L AST 158 H Total Creatine Kinase 1659 H CK-MB (CK-2) 88.7 H CK-MB (CK-2) Rel Index 5.3 H Troponin T 1.500 H* D Albumin 3.6 L LDL Cholesterol Direct Urine WBC (Auto) 10/01/17 10/01/17 10/01/17 11:34 15:07 21:44 WBC RBC Hct MCV MCH MCHC RDW Sawyer % (Auto) Sawyer # Seg Neuts % (Manual) Lymphocytes % (Manual) Monocytes % (Manual) APTT Glucose POC Glucose 150 H 149 H 154 H Hemoglobin A1c Lactic Acid Calcium AST Total Creatine Kinase CK-MB (CK-2) CK-MB (CK-2) Rel Index Troponin T Albumin LDL Cholesterol Direct Urine WBC (Auto) 10/02/17 10/02/17 10/02/17 08:59 11:28 13:51 WBC 11.3 H RBC 5.98 H Hct 46.1 H MCV 77 L MCH 24 L MCHC 31 L RDW 16.1 H Sawyer % (Auto) Sawyer # Seg Neuts % (Manual) Lymphocytes % (Manual) Monocytes % (Manual) APTT Glucose POC Glucose 189 H Hemoglobin A1c 7.5 H Lactic Acid Calcium AST Total Creatine Kinase CK-MB (CK-2) CK-MB (CK-2) Rel Index Troponin T Albumin LDL Cholesterol Direct Urine WBC (Auto) 10/02/17 10/02/17 10/02/17 17:01 18:50 23:21 WBC RBC Hct MCV MCH MCHC RDW Sawyer % (Auto) Sawyer # Seg Neuts % (Manual) Lymphocytes % (Manual) Monocytes % (Manual) APTT Glucose POC Glucose 115 H 114 H Hemoglobin A1c Lactic Acid 2.10 H* Calcium AST Total Creatine Kinase CK-MB (CK-2) CK-MB (CK-2) Rel Index Troponin T Albumin LDL Cholesterol Direct Urine WBC (Auto) 10/02/17 10/03/17 10/03/17 Unknown 05:06 05:06 WBC RBC 5.45 H Hct MCV 75 L MCH 24 L MCHC RDW 15.5 H Sawyer % (Auto) 13.5 H Sawyer # 1.3 H Seg Neuts % (Manual) Lymphocytes % (Manual) Monocytes % (Manual) APTT Glucose 105 H POC Glucose Hemoglobin A1c Lactic Acid Calcium 8.2 L AST 50 H Total Creatine Kinase CK-MB (CK-2) CK-MB (CK-2) Rel Index Troponin T Albumin 3.1 L LDL Cholesterol Direct Urine WBC (Auto) 17.0 H 10/03/17 07:14 WBC RBC Hct MCV MCH MCHC RDW Sawyer % (Auto) Sawyer # Seg Neuts % (Manual) Lymphocytes % (Manual) Monocytes % (Manual) APTT Glucose POC Glucose 112 H Hemoglobin A1c Lactic Acid Calcium AST Total Creatine Kinase CK-MB (CK-2) CK-MB (CK-2) Rel Index Troponin T Albumin LDL Cholesterol Direct Urine WBC (Auto)
--- NOTE | 2017-10-03 12:47 | Progress Note ---
Assessment and Plan Currently stable cardiac status. Cont empiric abx per primary. Assessment and plan reviewed with pt at bedside. The patient has been seen in conjunction with Dr. Sands who agrees with the assessment and plan of care. - Patient Problems (1) STEMI (ST elevation myocardial infarction) Current Visit: Yes Status: Acute Qualifiers: Involved coronary artery: right coronary artery Qualified Code(s): I21.11 - ST elevation (STEMI) myocardial infarction involving right coronary artery (2) Stented coronary artery Current Visit: Yes Status: Chronic (3) Acute respiratory failure Current Visit: Yes Status: Resolved Qualifiers: Respiratory failure complication: hypoxia Qualified Code(s): J96.01 - Acute respiratory failure with hypoxia (4) Hypertension Current Visit: Yes Status: Chronic Qualifiers: Hypertension type: essential hypertension Qualified Code(s): I10 - Essential (primary) hypertension (5) Hyperlipemia, mixed Current Visit: Yes Status: Chronic (6) Diabetes mellitus Current Visit: Yes Status: Chronic Qualifiers: Diabetes mellitus type: type 2 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 Diabetes mellitus complication status: without complication Qualified Code(s): E11.9 - Type 2 diabetes mellitus without complications; Z79.4 - FDC (current) use of insulin (7) Protein S deficiency Current Visit: Yes Status: Chronic (8) Sinus bradycardia Current Visit: Yes Status: Acute (9) Obesity Current Visit: Yes Status: Chronic (10) Fever Current Visit: Yes Status: Acute (11) Lactic acidosis Current Visit: Yes Status: Acute (12) Leukocytosis Current Visit: Yes Status: Acute Subjective Date of service: 10/03/17 Principal diagnosis: STEMI Interval history: pt resting comfortably in bed, no current cardiac complaints. had fever overnight. Objective Last Vital Signs Temp 99.8 F H 10/03/17 09:25 Pulse 62 10/03/17 10:00 Resp 18 10/03/17 09:25 BP 134/76 10/03/17 09:25 Pulse Ox 91 10/03/17 09:25 - Physical Examination General: No Apparent Distress HEENT: Positive: PERRL, Mucus Membranes Moist Neck: Positive: neck supple, trachea midline Cardiac: Positive: Reg Rate and Rhythm, S1/S2 Lungs: Positive: clear to auscultation Neuro: Positive: Grossly Intact Abdomen: Positive: Soft, Active Bowel Sounds. Negative: Tender, Distended Skin: Positive: Clear Incision: Cardiac Cath Site (right arm no hematoma and right groin venous sheath in place no hematoma) Musculoskeletal: No Pain, Normal Range of Motion Extremities: Present: normal. Absent: edema - Labs and Meds Cardiac Enzymes 10/03/17 Range/Units 05:06 AST 50 H (5-40) units/L CBC 10/03/17 Range/Units 05:06 WBC 9.6 (4.5-11.0) K/mm3 RBC 5.45 H (3.65-5.03) M/mm3 Hgb 13.1 (11.8-15.2) gm/dl Hct 41.1 (35.5-45.6) % Plt Count 159 (140-440) K/mm3 Lymph # 3.1 (1.2-5.4) K/mm3 [place] # 1.3 H (0.0-0.8) K/mm3 Eos # 0.1 (0.0-0.4) K/mm3 Baso # 0.0 (0.0-0.1) K/mm3 Comprehensive Metabolic Panel 10/03/17 Range/Units 05:06 Sodium 137 (137-145) mmol/L Potassium 4.4 (3.6-5.0) mmol/L Chloride 100.3 (98-107) mmol/L Carbon Dioxide 26 (22-30) mmol/L BUN 13 (9-20) mg/dL Creatinine 0.8 (0.8-1.5) mg/dL Glucose 105 H (75-100) mg/dL Calcium 8.2 L (8.4-10.2) mg/dL AST 50 H (5-40) units/L ALT 27 (7-56) units/L Alkaline Phosphatase 69 (35-129) units/L Total Protein 6.5 (6.3-8.2) g/dL Albumin 3.1 L (3.9-5) g/dL - Imaging and Cardiology Echo: report reviewed (10/01/2017: EF 55-60%, mild MR) Cardiac cath: report reviewed (09/30/2017 left main patent LAD patent diagonal one patent circumflex patent which are all large-caliber vessels with normal LV function and RCA was large aneurysmal vessel with distal vessel was 100% patient required thrombectomy and a temporary pacemaker wire initially that was removed as patient was monitored and did not require pacemaker for over an hour. Patient had a PCI of the PDA with a drug-eluting xience 2.5 x 15 mm and normal lv function)
[2017-10-04] MEDS: HumuLIN R SUB-Q SCH ×3 (00:42→12:24)
[2017-10-04] MEDS: VANCOMYCIN 2,000 MG in NACL 0.9% 500 ML 500 ML IV SCH (04:32)
[2017-10-04 06:22] LABS: Basophils # (Auto) 0.1 K/mm3 (0.0-0.1); Basophils % (Auto) 0.6 % (0.0-1.8); Eosinophils # (Auto) 0.2 K/mm3 (0.0-0.4); Eosinophils % (Auto) 1.9 % (0.0-4.3); Hematocrit 42.3 % (35.5-45.6); Hemoglobin 13.6 gm/dl (11.8-15.2); Lymphocytes # (Auto) 2.9 K/mm3 (1.2-5.4); Lymphocytes % (Auto) 33.2 % (13.4-35.0); Mean Corpuscular HGB Conc 32 % (32-34); Mean Corpuscular Volume 75 fl (84-94); Monocytes # (Auto) 1.2 K/mm3 (0.0-0.8); Monocytes % (Auto) 13.2 % (0.0-7.3); Platelet Count 184 K/mm3 (140-440); Red Blood Count 5.66 M/mm3 (3.65-5.03); Red Cell Distribution Width 15.6 % (13.2-15.2)
[2017-10-04 06:43] LABS: Mean Corpuscular Hemoglobin 24 pg (28-32)
[2017-10-04 06:49] LABS: Alanine Aminotransferase 24 units/L (7-56); Albumin 3.1 g/dL (3.9-5); BUN/Creatinine Ratio 13; Blood Urea Nitrogen 12 mg/dL (9-20); Calcium 8.1 mg/dL (8.4-10.2); Hemolysis Index 4
[2017-10-04] MEDS: ZOSYN/NS 4.5GM/100ML 4.5 GM/100 ML VIAL IV SCH (06:50)
--- NOTE | 2017-10-04 09:57 | Progress Note ---
Assessment and Plan - SIRS Fever has resolved as well as Leukocytosis Obtain lactic acid level F/u result of blood and urine Cx Commence pt on Vanc and Zosyn - Mild Leukocytosis could be infective or reactionary Trend - T2DM A1c SSI, consistent CHO diet - Hypercoagulable state with Prot S def. continu with anticoagulation with Xeralto - Hyperlipedemia on Statin Subjective Date of service: 10/04/17 Principal diagnosis: STEMI Interval history: Patient seen and examined. Temperature 1.2. Denies any abdominal pain nausea vomiting. No chest panic. Shortness of breath. Laboratory data reviewed. Objective - Exam Narrative Exam: Constitutional: Well-nourished well-developed. Obese. In no distress Head: Normocephalic atraumatic Eyes: Pupils are equal round and reactive to light Nose: No enlarged turbinates, no septal deviation. Mouth: Moist mucous membranes. Neck: Supple no thyromegaly. No bruit. No JVD Heart: Regular rate and rhythm, S1-S2 abnormal. No rubs murmurs or gallop Lungs: Clear to auscultation bilaterally no rales or rhonchi Abdomen: Soft, nontender. Bowel sound are present. Extremities: No edema no cyanosis and no clubbing. Neuro: Alert oriented Oriented x3. No focal sensory or motor deficit. Skin: No rashes no hyperemic spots Psychiatry: Euthymic. Calm. - Constitutional Vitals: Vital Signs - 12hr 10/03/17 10/04/17 10/04/17 23:38 04:15 07:25 Temperature 100.5 F H 99.1 F 98.9 F Pulse Rate 67 62 61 Respiratory 18 18 20 Rate Blood Pressure 131/76 114/63 122/70 O2 Sat by Pulse 88 94 94 Oximetry - Labs CBC & Chem 7: 10/04/17 04:58 10/04/17 04:58 Labs: Abnormal lab results 10/03/17 10/03/17 10/04/17 Range/Units 16:07 23:45 04:58 RBC 5.66 H (3.65-5.03) M/mm3 MCV 75 L (84-94) fl MCH 24 L (28-32) pg RDW 15.6 H (13.2-15.2) % [place] % (Auto) 13.2 H (0.0-7.3) % [place] # 1.2 H (0.0-0.8) K/mm3 Glucose (75-100) mg/dL POC Glucose 170 H 120 H (70-105) Calcium (8.4-10.2) mg/dL Albumin (3.9-5) g/dL 10/04/17 Range/Units 04:58 RBC (3.65-5.03) M/mm3 MCV (84-94) fl MCH (28-32) pg RDW (13.2-15.2) % [place] % (Auto) (0.0-7.3) % [place] # (0.0-0.8) K/mm3 Glucose 112 H (75-100) mg/dL POC Glucose (70-105) Calcium 8.1 L (8.4-10.2) mg/dL Albumin 3.1 L (3.9-5) g/dL
--- NOTE | 2017-10-04 11:18 | Progress Note ---
Assessment and Plan Currently stable cardiac status. Pt may discharge home. D/w Dr. Cruz. Follow up in our [place] office with Dr. Jenkins on 10/09/2017 @ 1:00PM. The patient has been seen in conjunction with Dr. Elijah Nichole who agrees with the assessment and plan of care. - Patient Problems (1) STEMI (ST elevation myocardial infarction) Current Visit: Yes Status: Acute Qualifiers: Involved coronary artery: right coronary artery Qualified Code(s): I21.11 - ST elevation (STEMI) myocardial infarction involving right coronary artery (2) Stented coronary artery Current Visit: Yes Status: Chronic (3) Acute respiratory failure Current Visit: Yes Status: Resolved Qualifiers: Respiratory failure complication: hypoxia Qualified Code(s): J96.01 - Acute respiratory failure with hypoxia (4) Hypertension Current Visit: Yes Status: Chronic Qualifiers: Hypertension type: essential hypertension Qualified Code(s): I10 - Essential (primary) hypertension (5) Hyperlipemia, mixed Current Visit: Yes Status: Chronic (6) Diabetes mellitus Current Visit: Yes Status: Chronic Qualifiers: Diabetes mellitus type: type 2 Diabetes mellitus residential insulin use: with termite technician use Diabetes mellitus complication status: without complication Qualified Code(s): E11.9 - Type 2 diabetes mellitus without complications; Z79.4 - prison (current) use of insulin (7) Protein S deficiency Current Visit: Yes Status: Chronic (8) Sinus bradycardia Current Visit: Yes Status: Acute (9) Obesity Current Visit: Yes Status: Chronic (10) Fever Current Visit: Yes Status: Acute (11) Lactic acidosis Current Visit: Yes Status: Acute (12) Leukocytosis Current Visit: Yes Status: Acute Subjective Date of service: 10/04/17 Principal diagnosis: STEMI Interval history: pt resting comfortably in bed, no current cardiac complaints. Objective Last Vital Signs Temp 98.9 F 10/04/17 07:25 Pulse 61 10/04/17 07:25 Resp 20 10/04/17 07:25 BP 122/70 10/04/17 07:25 Pulse Ox 94 10/04/17 07:25 - Physical Examination General: No Apparent Distress HEENT: Positive: PERRL, Mucus Membranes Moist Neck: Positive: neck supple, trachea midline Cardiac: Positive: Reg Rate and Rhythm, S1/S2 Lungs: Positive: clear to auscultation Neuro: Positive: Grossly Intact Abdomen: Positive: Soft, Active Bowel Sounds. Negative: Tender, Distended Skin: Positive: Clear Incision: Cardiac Cath Site (right arm no hematoma and right groin venous sheath in place no hematoma) Musculoskeletal: No Pain, Normal Range of Motion Extremities: Present: normal. Absent: edema - Labs and Meds Cardiac Enzymes 10/04/17 Range/Units 04:58 AST 35 (5-40) units/L CBC 10/04/17 Range/Units 04:58 WBC 8.8 (4.5-11.0) K/mm3 RBC 5.66 H (3.65-5.03) M/mm3 Hgb 13.6 (11.8-15.2) gm/dl Hct 42.3 (35.5-45.6) % Plt Count 184 (140-440) K/mm3 Lymph # 2.9 (1.2-5.4) K/mm3 [place] # 1.2 H (0.0-0.8) K/mm3 Eos # 0.2 (0.0-0.4) K/mm3 Baso # 0.1 (0.0-0.1) K/mm3 Comprehensive Metabolic Panel 10/04/17 Range/Units 04:58 Sodium 139 (137-145) mmol/L Potassium 4.1 (3.6-5.0) mmol/L Chloride 99.7 (98-107) mmol/L Carbon Dioxide 24 (22-30) mmol/L BUN 12 (9-20) mg/dL Creatinine 0.9 (0.8-1.5) mg/dL Glucose 112 H (75-100) mg/dL Calcium 8.1 L (8.4-10.2) mg/dL AST 35 (5-40) units/L ALT 24 (7-56) units/L Alkaline Phosphatase 72 (35-129) units/L Total Protein 6.7 (6.3-8.2) g/dL Albumin 3.1 L (3.9-5) g/dL - Imaging and Cardiology Echo: report reviewed (10/01/2017: EF 55-60%, mild MR) Cardiac cath: report reviewed (09/30/2017 left main patent LAD patent diagonal one patent circumflex patent which are all large-caliber vessels with normal LV function and RCA was large aneurysmal vessel with distal vessel was 100% patient required thrombectomy and a temporary pacemaker wire initially that was removed as patient was monitored and did not require pacemaker for over an hour. Patient had a PCI of the PDA with a drug-eluting xience 2.5 x 15 mm and normal lv function) - Telemetry EKG Rhythm: Sinus Rhythm
--- NOTE | 2017-10-04 12:11 | Discharge Summary ---
Providers - Providers Date of Admission: 09/30/17 05:04 Date of discharge: 10/04/17 Attending physician: RONALDO JENKINS 09/30/17 Consult to Cardiac Rehabilitation [CONS] Routine Reason For Exam: post pci 09/30/17 02:37 Consult to Physician [CONS] Stat Comment: Dr. Liu spoke with Dr. Jenkins Consulting Provider: ORNALDO JENKINS Physician Instructions: Reason For Exam: stemi 09/30/17 05:09 Consult to Dietitian/Nutrition [CONS] Routine Physician Instructions: Reason For Exam: Reason for Consult: Diet education 09/30/17 05:11 Consult to Physician [CONS] Routine Comment: Consulting Provider: MEL ESPINOZA Physician Instructions: Reason For Exam: icu care post mi 10/02/17 10:35 Consult to Physician [CONS] Routine Comment: Consulting Provider: JACKIE DE LUNA Physician Instructions: Reason For Exam: fever; ? sepsis Primary care physician: NEGOTIATIONS DIRECTOR Hospitalization Condition: Serious Pertinent studies: [facility] with PCI and echo - see reports Procedures: [facility] with PCI and echo - see reports Hospital course: This is a 62-year-old gentleman with a history of hypertension hyperlipidemia obesity diabetes protein S deficiency patient is on xalerto. On the day of admission, patient was doing his normal activity and woke up with midsternal chest pressure mild nausea with radiation to her left arm pressure- like no syncope no palpitations. Called EMS patient was found to have an acute inferior wall MA patient was emergently taken to the cardiac [facility] which revealed left main patent LAD patent diagonal one patent circumflex patent which are all large-caliber vessels with normal LV function and RCA was large aneurysmal vessel with distal vessel was 100% patient required thrombectomy and a temporary pacemaker wire initially that was removed as patient was monitored and did not require pacemaker for over an hour. Patient had a PCI of the PDA with a drug-eluting xience 2.5 x 15 mm and normal lv function, pt chest pain has improved since presentation. Following PCI, pt developed intermittent low grade fever and leukocytosis and was initiated on empiric abx per hospitalist. Blood and urine cultures NGTD. At discharge, hospitalist recommends PO augmentin BID for 5 days. Pt is current medically stable for discharge home. Disposition: TO HOME OR SELFCARE - Discharge Diagnoses (1) STEMI (ST elevation myocardial infarction) Status: Acute Qualifiers: Involved coronary artery: right coronary artery Qualified Code(s): I21.11 - ST elevation (STEMI) myocardial infarction involving right coronary artery (2) Stented coronary artery Status: Chronic (3) Acute respiratory failure Status: Resolved Qualifiers: Respiratory failure complication: hypoxia Qualified Code(s): J96.01 - Acute respiratory failure with hypoxia (4) Hypertension Status: Chronic Qualifiers: Hypertension type: essential hypertension Qualified Code(s): I10 - Essential (primary) hypertension (5) Hyperlipemia, mixed Status: Chronic (6) Diabetes mellitus Status: Chronic Qualifiers: Diabetes mellitus type: type 2 Diabetes mellitus assisted insulin use: with assisted use Diabetes mellitus complication status: without complication Qualified Code(s): E11.9 - Type 2 diabetes mellitus without complications; Z79.4 - extermination supervisor (current) use of insulin (7) Protein S deficiency Status: Chronic (8) Sinus bradycardia Status: Acute (9) Obesity Status: Chronic (10) Fever Status: Acute (11) Lactic acidosis Status: Acute (12) Leukocytosis Status: Acute Core Measure Documentation - Palliative Care Palliative Care/ Comfort Measures: Not Applicable - Core Measures Any of the following diagnoses?: acute MA - Acute MA Discharge Requirements Aspirin at discharge: Yes LIZBETH/ARB for LVSD if EF <40%: Not Applicable Beta mckayla at discharge: No Reason for no beta mckayla on DC: Bradycardia Statin for LDL = or >100 mg/dl on DC: Yes Exam - Constitutional Vitals: Temp Pulse Resp BP Pulse Ox 98.9 F 61 20 122/70 94 10/04/17 07:25 10/04/17 07:25 10/04/17 07:25 10/04/17 07:25 10/04/17 07:25 General appearance: Present: no acute distress - EENT Eyes: Present: PERRL, EOM intact ENT: hearing intact, clear oral mucosa, dentition normal - Neck Neck: Present: supple, normal ROM - Respiratory Respiratory effort: normal Respiratory: bilateral: CTA - Cardiovascular Rhythm: regular Heart Sounds: Present: S1 & S2 - Extremities Extremities: no ischemia, pulses intact, pulses symmetrical Peripheral Pulses: within normal limits - Abdominal General gastrointestinal: Present: soft, non-tender - Integumentary Integumentary: Present: clear, warm, dry - Musculoskeletal Musculoskeletal: strength equal bilaterally Plan Activity: advance as tolerated Diet: low cholesterol, low salt, diabetic Wound: open to air, keep clean and dry, per your surgeon's advice Follow up with: PRIMARY CARE, [Primary Care Provider] - 3-5 Days RONALDO JENKINS MD [Family Provider] - 7 Days (Follow up in our [place] office with Dr. Jenkins on 10/09/2017 @ 1:00PM. ) Prescriptions: AtorvaSTATin [Lipitor] 80 mg PO QHS #30 tablet Amoxicillin/K Clav Tab [Augmentin 875 mg] 1 tab PO Q12HR #11 tab Clopidogrel Bisulfate [Plavix] 75 mg PO DAILY #30 tablet
[2017-10-04] MEDS: PLAVIX PO SCH (12:28)
[2017-10-04] MEDS: XARELTO PO SCH (12:29)
[2017-10-04] MEDS: ULTRAM PO PRN (12:29)
[2017-10-04] MEDS: PROTONIX PO SCH (12:30)
[2017-10-04] MEDS: BABY ASPIRIN PO SCH (12:30)
[2017-10-04 12:38] VITALS: BP 122/76
== END 2017-10-04 15:13 | disposition home or self-care (01) | DRG 246 ==
LOC: ED 02:23 → CATH 04:35 → CC1 05:04 → 4A 10-01 13:12
PROVIDERS: ADMIT Internal Medicine; ATTEND Internal Medicine
PROC: 4A023N7 Measurement of Cardiac Sampling and Pressure, Left Heart, Percutaneous Approach (ICD-10-PCS; principal; 2017-09-30)
PROC: 027034Z Dilation of Coronary Artery, One Artery with Drug-eluting Intraluminal Device, Percutaneous Approach (ICD-10-PCS; 2017-09-30)
PROC: 02C03ZZ Extirpation of Matter from Coronary Artery, One Artery, Percutaneous Approach (ICD-10-PCS; 2017-09-30)
PROC: B2111ZZ Fluoroscopy of Multiple Coronary Arteries using Low Osmolar Contrast (ICD-10-PCS; 2017-09-30)
PROC: B2151ZZ Fluoroscopy of Left Heart using Low Osmolar Contrast (ICD-10-PCS; 2017-09-30)
DX: I21.3 ST elevation (STEMI) myocardial infarction of unspecified site (principal); I50.31 Acute diastolic (congestive) heart failure; J96.01 Acute respiratory failure with hypoxia; D68.59 Other primary thrombophilia; E87.2 Acidosis; E78.00 Pure hypercholesterolemia, unspecified; Z86.711 Personal history of pulmonary embolism; E11.9 Type 2 diabetes mellitus without complications; Z79.899 Other long term (current) drug therapy; Z79.84 Long term (current) use of oral hypoglycemic drugs; I11.0 Hypertensive heart disease with heart failure; E66.01 Morbid (severe) obesity due to excess calories; Z68.33 Body mass index [BMI] 33.0-33.9, adult; E78.2 Mixed hyperlipidemia; I25.10 Atherosclerotic heart disease of native coronary artery without angina pectoris
CPT/HCPCS: 33210; 36415; 71045; 80048; 80053; 80061; 81001; 82140; 82550; 82553; 82962; 83036; 84484; 85007; 85014; 85018; 85025; 85027; 85049; 85610; 85730; 86850; 86900; 86901; 87040; 87086; 92941; 93005; 93010; 93306; 93458; 94760; A9270-GY; C1725; C1757; C1769; C1874; C1887; C1894; C9606; J0461; J1644; J1815; J2250; J2270; J2405; J2543; J3010; J3246; J3370; J7030; J7040; J7050; Q9967